=== PATIENT | female | born 1970 | race Caucasian/White ===

== ENCOUNTER 2017-03-23 09:43 | Emergency (ER) | payer BC ==
[2017-03-23] MEDS: IBUPROFEN 800 MG TAB PO (12:15)
== END 2017-03-23 14:12 | disposition home or self-care (01) ==
LOC: FTE 09:43
DX: I80.02 Phlebitis and thrombophlebitis of superficial vessels of left lower extremity (principal)
CPT/HCPCS: 93971; 99284-25

== ENCOUNTER 2017-07-03 13:04 | Emergency (ER) | payer BC ==
[2017-07-03] MEDS: LORAZEPAM 0.5 MG TAB PO (13:33)
== END 2017-07-03 14:53 | disposition home or self-care (01) ==
LOC: FTE 13:04
DX: F41.9 Anxiety disorder, unspecified (principal); R06.4 Hyperventilation; I10 Essential (primary) hypertension; Z79.01 Long term (current) use of anticoagulants
CPT/HCPCS: 82962; 93005; 99284-25

== ENCOUNTER 2018-02-27 08:49 | Emergency (ER) | payer BC ==
[2018-02-27 09:33] LABS: ADD MAN DIFF? NO
[2018-02-27 09:35] LABS: BASOPHILS % 0.6 % (0.0-2.0); EOSINOPHILS # 0.2 10^3/ul (0.0-0.5); EOSINOPHILS % 2.5 % (0.0-7.0); HEMATOCRIT 36.3 % (37.0-47.0); HEMOGLOBIN 11.6 g/dl (12.0-16.0); LYMPHOCYTES # 1.3 10^3/ul (0.8-2.9); LYMPHOCYTES % 19.8 % (15.0-51.0); MEAN CORPUSCULAR HEMOGLOBIN 26.9 pg (29.0-33.0); MEAN CORPUSCULAR VOLUME 84.2 fl (82.0-101.0); MEAN PLATELET VOLUME 9.1 fl (7.4-10.4); MONOCYTE # 0.4 10^3/ul (0.3-0.9); MONOCYTES % 5.2 % (0.0-11.0); NEUTROPHIL # 4.9 10^3/ul (1.6-7.5); NEUTROPHILS % 71.6 % (39.0-77.0); PLATELET COUNT 255 10^3/UL (140-415); RED BLOOD COUNT 4.31 10^6/ul (4.20-5.40); RED CELL DISTRIBUTION WIDTH 14.3 % (11.5-14.5)
[2018-02-27 09:35] LABS: WHITE BLOOD COUNT 6.8 10^3/ul (4.8-10.8)
[2018-02-27] MEDS: morphine 4 MG/ML VIAL IV (09:35)
[2018-02-27] MEDS: ONDANSETRON 4 MG INJ IV (09:35)
[2018-02-27 09:54] LABS: ALANINE AMINOTRANSFERASE 20 IU/L (13-69); ALBUMIN 4.4 g/dl (3.3-4.9); ALBUMIN/GLOBULIN RATIO 0.86; ALKALINE PHOSPHATASE 130 IU/L (42-121); ANION GAP 11 (5-13); ASPARTATE AMINO TRANSFERASE 23 IU/L (15-46); BILIRUBIN,INDIRECT 0.4 mg/dl (0-1.1); BILIRUBIN,TOTAL 0.4 mg/dl (0.2-1.3); BLOOD UREA NITROGEN 12 mg/dl (7-20); CARBON DIOXIDE 26 mmol/L (21-31); CHLORIDE 105 mmol/L (97-110); CREATININE 0.56 mg/dl (0.44-1.00); Estimated GFR > 60 mL/min (>60); GLUCOSE 102 mg/dl (70-220); POTASSIUM 4.1 mmol/L (3.5-5.1); SODIUM 142 mmol/L (135-144); TOTAL PROTEIN 9.5 g/dl (6.1-8.1)
[2018-02-27 09:55] LABS: INR 0.92; PROTIME 12.4 Sec (11.9-14.9)
[2018-02-27 09:56] LABS: PARTIAL THROMBOPLASTIN TIME 25.3 Sec (23.0-35.0)
[2018-02-27] MEDS ORDERED: ACETAMINOPHEN 325 MG TAB (10:03)
[2018-02-27] MEDS: ACETAMINOPHEN 325 MG TAB PO (10:05)
== END 2018-02-27 11:22 | disposition home or self-care (01) ==
LOC: E/R 08:49
DX: M79.605 Pain in left leg (principal); I10 Essential (primary) hypertension; Z79.01 Long term (current) use of anticoagulants
CPT/HCPCS: 80053; 85025; 85610; 85730; 93971; 99284-25